=== PATIENT | female | born 1980 | race Caucasian/White ===

== ENCOUNTER 2023-07-17 02:03 | Inpatient (IN) | payer SELFPAY ==
[2023-07-17 02:40] LABS: #Monocytes 0.4 thou/uL (0.11-0.59); #Neutrophils 9.8 thou/uL (1.40-6.50); %Basophils 0.1 % (0.0-1.0); %Eosinophils 0.3 % (0.0-10.0); %Monocytes 3.6 % (0.0-10.0); %Neutrophils 82.7 % (42.0-75.0); Hematocrit 34.8 % (36.0-47.0); Hemoglobin 12.1 g/dL (12.0-16.0); Mean Corpuscular HGB CONC 34.8 g/dL (32.0-36.0); Mean Corpuscular Hemoglobin 30.7 pg (27.0-31.0); Mean Corpuscular Volume 88.3 fl (78.0-98.0); Mean Platelet Volume 10.2 fL (7.4-10.4); Platelet Count 240 10x3/uL (130-400); RBC Distribution Width 13.6 % (11.5-14.5); Red Blood Cell (RBC) Count 3.94 mill/uL (4.20-5.40); White Blood Cell (WBC) Count 11.9 10x3/uL (4.8-10.8)
[2023-07-17] MEDS ORDERED: Ondansetron PF 4 MG/2 ML Vial ONE (02:40)
[2023-07-17] MEDS ORDERED: Morphine 4 MG/ML VIAL ONE (02:40)
[2023-07-17 02:46] LABS: BHCG - Serum Negative (NEGATIVE); Pregs Control Background? CLEAR/WHITE (CLR/WHITE); Pregs Control Bar Appear? YES (CONTROL BAR)
[2023-07-17 03:01] LABS: ALT (SGPT) 13 U/L (8-55); AST (SGOT) 14 U/L (5-34); Albumin 3.9 g/dL (3.5-5.0); Alkaline Phosphatase 69 U/L (40-110); Anion Gap 15 mmol/L (10-20); BUN (Urea Nitrogen) 14 mg/dL (7.0-18.7); Bilirubin, Total 0.5 mg/dL (0.2-1.2); CRP (Inflammatory) 7.37 mg/dL (= or < 0.5); Calc. Creatinine Clearance 0 mL/min (70-130); Calcium 8.6 mg/dL (7.8-10.44); Carbon Dioxide 20 mmol/L (22-29); Chloride 107 mmol/L (98-107); Estimated GFR 89; Globulin 2.9 g/dL (2.4-3.5); Glucose 97 mg/dL (70-105); Potassium 3.6 mmol/L (3.5-5.1); Protein, Total 6.8 g/dL (6.0-8.3); Sodium 138 mmol/L (136-145)
[2023-07-17] MEDS ORDERED: Morphine 2 MG/ML VIAL ONE (03:06)
[2023-07-17] MEDS ORDERED: Ketamine In 0.9 % NaCl 50 MG/5 ML SYRINGE ONE (03:56)
[2023-07-17] MEDS ORDERED: HYDROmorphone 0.5 MG/0.5 ML SYRINGE ONE ×2 (04:17→05:12)
[2023-07-17 04:33] LABS: Bilirubin Negative (Negative); Blood, Urine Negative (Negative); CAUTI Indications for Culture Pelvic or flank pain; Clarity Clear (Clear); Glucose, Urine (Dipstick) Normal (Negative); Ketone, Urine Negative (Negative); Leukocyte Negative Leu/uL (Negative); Nitrite Negative (Negative); Protein, Urine (Dipstick) Negative (Neg-Trace); RBC/HPF 0-3 HPF (0-3); Squamous Epithelial 0-3 HPF (0-3); Urobilinogen Normal mg/dL (Less than 2); WBC/HPF 0-3 HPF (0-3)
[2023-07-17 04:34] LABS: Bacteria/HPF 1+ HPF (None Seen)
[2023-07-17 04:35] LABS: Urine Culture Reflex No No
[2023-07-17] MEDS: Morphine 2 MG/ML VIAL SLOW IVP PRN ×2 (06:57→08:47)
[2023-07-17] MEDS ORDERED: Ketorolac Tromethamine 30 MG (1 mL) VIAL IVP PRN (07:30)
[2023-07-17] MEDS: Pantoprazole 40 MG VIAL IVP SCH (08:48)
[2023-07-17 09:53] VITALS: BMI 35.1
[2023-07-17] MEDS ORDERED: Lactated Ringer's 1,000 ML IV SCH (10:00)
[2023-07-17] MEDS ORDERED: Magnevist 469MG/ML 20 ML VIAL ONE (11:15)
[2023-07-17] MEDS ORDERED: Naloxone HCl 0.4 mg/ml Vial IV PRN (11:30)
[2023-07-17] MEDS ORDERED: Promethazine HCl 25 MG/ML VIAL IM PRN (11:30)
[2023-07-17] MEDS ORDERED: Zolpidem Tartrate 5 MG TAB PO PRN (11:30)
[2023-07-17] MEDS ORDERED: diphenhydrAMINE 50 MG/ML VIAL IM/IV PRN (11:30)
[2023-07-17] MEDS ORDERED: diphenhydrAMINE 25 MG CAP PO PRN (11:30)
[2023-07-17] MEDS: Fentanyl CADD 100 ML IVPB SCH (12:06)
[2023-07-17] MEDS: Acetaminophen 325 MG TAB PO PRN (19:41)
[2023-07-18] MEDS: Acetaminophen 325 MG TAB PO PRN ×2 (01:49→15:58)
[2023-07-18] MEDS: Ondansetron PF 4 MG/2 ML Vial IVP PRN ×3 (01:50→16:51)
[2023-07-18] MEDS: Ketorolac Tromethamine 30 MG (1 mL) VIAL IVP PRN ×3 (01:54→21:26)
[2023-07-18] MEDS: Fentanyl CADD 100 ML IVPB SCH (04:47)
[2023-07-18] MEDS: Pantoprazole 40 MG VIAL IVP SCH (08:06)
[2023-07-18] MEDS ORDERED: cefTRIAXone\\ROCEPHIN 2 GM in Sodium Chloride 0.9% 100 ML IVPB SCH (08:15)
[2023-07-18] MEDS ORDERED: Vancomycin (BATCH) 2 GM in Premix 1 BAG IVPB SCH (09:00)
[2023-07-18 09:02] LABS: Hemoglobin 12.2 g/dL (12.0-16.0); Mean Corpuscular HGB CONC 32.1 g/dL (32.0-36.0); Mean Corpuscular Hemoglobin 30.3 pg (27.0-31.0); Mean Corpuscular Volume 94.5 fl (78.0-98.0); Platelet Count 208 10x3/uL (130-400); RBC Distribution Width 14.2 % (11.5-14.5); Red Blood Cell (RBC) Count 4.02 mill/uL (4.20-5.40); White Blood Cell (WBC) Count 9.2 10x3/uL (4.8-10.8)
[2023-07-18 09:27] LABS: ALT (SGPT) 131 U/L (8-55); AST (SGOT) 83 U/L (5-34); Albumin 3.8 g/dL (3.5-5.0); Alkaline Phosphatase 153 U/L (40-110); Anion Gap 15 mmol/L (10-20); BUN (Urea Nitrogen) 10 mg/dL (7.0-18.7); Bilirubin, Total 1.3 mg/dL (0.2-1.2); Calc. Creatinine Clearance 153 mL/min (70-130); Calcium 8.3 mg/dL (7.8-10.44); Carbon Dioxide 22 mmol/L (22-29); Chloride 102 mmol/L (98-107); Estimated GFR 96; Globulin 3.2 g/dL (2.4-3.5); Glucose 115 mg/dL (70-105); Potassium 3.8 mmol/L (3.5-5.1); Sodium 135 mmol/L (136-145)
[2023-07-18] MEDS: Sodium Chloride 0.9% 1,000 ML IV SCH ×4 (10:44→16:00)
[2023-07-18] MEDS ORDERED: Iopamidol-370 76% 500 ML MDV (1 ML CHARGE) ONE (11:18)
[2023-07-18] MEDS ORDERED: Polyethylene Glycol 3350 17 GM Packet PO PRN (15:08)
[2023-07-18 15:14] LABS: #Monocytes 0.4 thou/uL (0.11-0.59); #Neutrophils 6.8 thou/uL (1.40-6.50); %Basophils 0.1 % (0.0-1.0); %Lymphocytes 8.5 % (21.0-51.0); Hemoglobin 10.6 g/dL (12.0-16.0); Mean Corpuscular HGB CONC 33.1 g/dL (32.0-36.0); Mean Corpuscular Hemoglobin 30.9 pg (27.0-31.0); Mean Corpuscular Volume 93.3 fl (78.0-98.0); Mean Platelet Volume 9.8 fL (7.4-10.4); Platelet Count 179 10x3/uL (130-400); Red Blood Cell (RBC) Count 3.43 mill/uL (4.20-5.40); White Blood Cell (WBC) Count 7.9 10x3/uL (4.8-10.8)
[2023-07-18 15:35] LABS: ALT (SGPT) 96 U/L (8-55); AST (SGOT) 57 U/L (5-34); Albumin 3.3 g/dL (3.5-5.0); Alkaline Phosphatase 137 U/L (40-110); Anion Gap 14 mmol/L (10-20); BUN (Urea Nitrogen) 9 mg/dL (7.0-18.7); Bilirubin, Total 0.6 mg/dL (0.2-1.2); Calc. Creatinine Clearance 164 mL/min (70-130); Calcium 7.5 mg/dL (7.8-10.44); Carbon Dioxide 21 mmol/L (22-29); Chloride 104 mmol/L (98-107); Estimated GFR 104; Globulin 2.6 g/dL (2.4-3.5); Glucose 117 mg/dL (70-105); Potassium 4.2 mmol/L (3.5-5.1); Protein, Total 5.9 g/dL (6.0-8.3); Sodium 135 mmol/L (136-145)
[2023-07-18] MEDS: Vancomycin (BATCH) 1.25 GM in Premix 1 BAG IVPB SCH (21:35)
[2023-07-19] MEDS: Sodium Chloride 0.9% 1,000 ML IV SCH ×3 (00:44→07:58)
[2023-07-19] MEDS: Ketorolac Tromethamine 30 MG (1 mL) VIAL IVP PRN ×3 (03:59→20:14)
[2023-07-19] MEDS: Fentanyl CADD 100 ML IVPB SCH (06:12)
[2023-07-19 07:32] LABS: Hematocrit 33.7 % (36.0-47.0); Hemoglobin 10.3 g/dL (12.0-16.0); Mean Corpuscular HGB CONC 30.6 g/dL (32.0-36.0); Mean Corpuscular Hemoglobin 29.9 pg (27.0-31.0); Mean Platelet Volume 10.4 fL (7.4-10.4); Platelet Count 160 10x3/uL (130-400); RBC Distribution Width 14.2 % (11.5-14.5); Red Blood Cell (RBC) Count 3.44 mill/uL (4.20-5.40); White Blood Cell (WBC) Count 7.5 10x3/uL (4.8-10.8)
[2023-07-19 07:50] LABS: ALT (SGPT) 71 U/L (8-55); AST (SGOT) 31 U/L (5-34); Alkaline Phosphatase 136 U/L (40-110); Anion Gap 11 mmol/L (10-20); BUN (Urea Nitrogen) 12 mg/dL (7.0-18.7); Bilirubin, Total 0.4 mg/dL (0.2-1.2); Calc. Creatinine Clearance 173 mL/min (70-130); Calcium 7.8 mg/dL (7.8-10.44); Carbon Dioxide 21 mmol/L (22-29); Chloride 104 mmol/L (98-107); Estimated GFR 111; Globulin 2.7 g/dL (2.4-3.5); Glucose 115 mg/dL (70-105); Potassium 3.8 mmol/L (3.5-5.1); Protein, Total 5.7 g/dL (6.0-8.3); Sodium 132 mmol/L (136-145)
[2023-07-19] MEDS: Ondansetron PF 4 MG/2 ML Vial IVP PRN ×2 (07:53→20:14)
[2023-07-19] MEDS: Pantoprazole 40 MG VIAL IVP SCH (07:55)
[2023-07-19] MEDS ORDERED: cefTRIAXone\\ROCEPHIN 2 GM in Sodium Chloride 0.9% 100 ML IVPB SCH (08:00)
[2023-07-19] MEDS: Vancomycin (BATCH) 1.25 GM in Premix 1 BAG IVPB SCH (10:01)
[2023-07-19] MEDS ORDERED: Cyclobenzaprine 10 MG TAB PO SCH (10:56)
[2023-07-19] MEDS: Oxacillin 2 GM in Sodium Chloride 0.9% 100 ML IVPB SCH ×3 (14:03→19:55)
[2023-07-19] MEDS: Cyclobenzaprine 10 MG TAB PO PRN (17:39)
[2023-07-19] MEDS ORDERED: Promethazine HCl 25 MG SUPP PR PRN (18:52)
[2023-07-19] MEDS: Enoxaparin 40 MG (0.4 mL) SYRINGE SC SCH (19:57)
[2023-07-20] MEDS: Oxacillin 2 GM in Sodium Chloride 0.9% 100 ML IVPB SCH ×6 (01:19→20:49)
[2023-07-20] MEDS: Cyclobenzaprine 10 MG TAB PO PRN ×3 (01:19→17:15)
[2023-07-20] MEDS: Fentanyl CADD 100 ML IVPB SCH ×2 (03:13→22:54)
[2023-07-20] MEDS: Ondansetron PF 4 MG/2 ML Vial IVP PRN (03:14)
[2023-07-20] MEDS: Ketorolac Tromethamine 30 MG (1 mL) VIAL IVP PRN ×4 (03:14→23:40)
[2023-07-20 06:26] LABS: Hematocrit 29.8 % (36.0-47.0); Hemoglobin 9.4 g/dL (12.0-16.0); Mean Corpuscular HGB CONC 31.5 g/dL (32.0-36.0); Mean Corpuscular Hemoglobin 30.6 pg (27.0-31.0); Mean Corpuscular Volume 97.1 fl (78.0-98.0); Mean Platelet Volume 9.7 fL (7.4-10.4); Platelet Count 178 10x3/uL (130-400); RBC Distribution Width 14.1 % (11.5-14.5); Red Blood Cell (RBC) Count 3.07 mill/uL (4.20-5.40); White Blood Cell (WBC) Count 8.1 10x3/uL (4.8-10.8)
[2023-07-20 06:49] LABS: ALT (SGPT) 47 U/L (8-55); AST (SGOT) 18 U/L (5-34); Alkaline Phosphatase 135 U/L (40-110); Anion Gap 11 mmol/L (10-20); BUN (Urea Nitrogen) 11 mg/dL (7.0-18.7); Bilirubin, Total 0.5 mg/dL (0.2-1.2); Calc. Creatinine Clearance 171 mL/min (70-130); Calcium 7.9 mg/dL (7.8-10.44); Carbon Dioxide 21 mmol/L (22-29); Chloride 104 mmol/L (98-107); Estimated GFR 109; Globulin 2.5 g/dL (2.4-3.5); Glucose 102 mg/dL (70-105); Potassium 3.7 mmol/L (3.5-5.1); Protein, Total 5.5 g/dL (6.0-8.3); Sodium 132 mmol/L (136-145)
[2023-07-20] MEDS: Polyethylene Glycol 3350 17 GM Packet PO SCH (08:43)
[2023-07-20] MEDS: Pantoprazole 40 MG VIAL IVP SCH (08:43)
[2023-07-20] MEDS: Enoxaparin 40 MG (0.4 mL) SYRINGE SC SCH (20:49)
[2023-07-21] MEDS: Cyclobenzaprine 10 MG TAB PO PRN ×2 (01:04→21:52)
[2023-07-21] MEDS: Oxacillin 2 GM in Sodium Chloride 0.9% 100 ML IVPB SCH ×6 (01:04→21:52)
[2023-07-21] MEDS: Ketorolac Tromethamine 30 MG (1 mL) VIAL IVP PRN (04:49)
[2023-07-21] MEDS ORDERED: Gabapentin 300 MG CAP PO SCH (09:45)
[2023-07-21] MEDS: Polyethylene Glycol 3350 17 GM Packet PO SCH (11:26)
[2023-07-21] MEDS: Saccharomyces boulardii 250 MG CAP PO SCH (11:39)
[2023-07-21 12:24] LABS: Hematocrit 34.2 % (36.0-47.0); Hemoglobin 11.4 g/dL (12.0-16.0); Mean Corpuscular HGB CONC 33.3 g/dL (32.0-36.0); Mean Platelet Volume 9.3 fL (7.4-10.4); Platelet Count 241 10x3/uL (130-400); RBC Distribution Width 13.9 % (11.5-14.5); White Blood Cell (WBC) Count 7.5 10x3/uL (4.8-10.8)
[2023-07-21 12:39] LABS: ALT (SGPT) 41 U/L (8-55); AST (SGOT) 18 U/L (5-34); Albumin 3.1 g/dL (3.5-5.0); Alkaline Phosphatase 173 U/L (40-110); Anion Gap 16 mmol/L (10-20); BUN (Urea Nitrogen) 8 mg/dL (7.0-18.7); Bilirubin, Total 0.9 mg/dL (0.2-1.2); Calc. Creatinine Clearance 176 mL/min (70-130); Carbon Dioxide 21 mmol/L (22-29); Chloride 100 mmol/L (98-107); Estimated GFR 111; Globulin 3.2 g/dL (2.4-3.5); Glucose 93 mg/dL (70-105); Potassium 3.6 mmol/L (3.5-5.1); Protein, Total 6.3 g/dL (6.0-8.3); Sodium 133 mmol/L (136-145)
[2023-07-21] MEDS: Lidocaine 4% Patch TD SCH (12:51)
[2023-07-21] MEDS: Ketorolac Tromethamine 30 MG (1 mL) VIAL IVP SCH ×2 (17:15→23:12)
[2023-07-21] MEDS: Gabapentin 300 MG CAP PO SCH (19:30)
[2023-07-21] MEDS: Transdermal Patch Removal TOP SCH (21:52)
[2023-07-21] MEDS: Enoxaparin 40 MG (0.4 mL) SYRINGE SC SCH (21:52)
[2023-07-21] MEDS: Fentanyl CADD 100 ML IVPB SCH (23:52)
[2023-07-22] MEDS: Oxacillin 2 GM in Sodium Chloride 0.9% 100 ML IVPB SCH ×3 (01:45→08:18)
[2023-07-22] MEDS: Gabapentin 300 MG CAP PO SCH ×4 (03:12→21:24)
[2023-07-22] MEDS: Ketorolac Tromethamine 30 MG (1 mL) VIAL IVP SCH ×4 (05:04→23:15)
[2023-07-22] MEDS: Cyclobenzaprine 10 MG TAB PO PRN (05:14)
[2023-07-22 05:52] LABS: Hematocrit 33.6 % (36.0-47.0); Hemoglobin 10.8 g/dL (12.0-16.0); Mean Corpuscular HGB CONC 32.1 g/dL (32.0-36.0); Mean Corpuscular Hemoglobin 30.2 pg (27.0-31.0); Mean Platelet Volume 9.8 fL (7.4-10.4); Platelet Count 235 10x3/uL (130-400); RBC Distribution Width 14.3 % (11.5-14.5); Red Blood Cell (RBC) Count 3.58 mill/uL (4.20-5.40); White Blood Cell (WBC) Count 7.8 10x3/uL (4.8-10.8)
[2023-07-22 05:58] LABS: Mean Corpuscular Volume 93.9 fl (78.0-98.0)
[2023-07-22 06:16] LABS: ALT (SGPT) 33 U/L (8-55); AST (SGOT) 17 U/L (5-34); Albumin 3.2 g/dL (3.5-5.0); Alkaline Phosphatase 180 U/L (40-110); Anion Gap 13 mmol/L (10-20); BUN (Urea Nitrogen) 9 mg/dL (7.0-18.7); Bilirubin, Total 0.6 mg/dL (0.2-1.2); Calc. Creatinine Clearance 176 mL/min (70-130); Calcium 8.2 mg/dL (7.8-10.44); Carbon Dioxide 22 mmol/L (22-29); Chloride 102 mmol/L (98-107); Estimated GFR 111; Globulin 2.9 g/dL (2.4-3.5); Glucose 91 mg/dL (70-105); Potassium 4.1 mmol/L (3.5-5.1); Protein, Total 6.1 g/dL (6.0-8.3); Sodium 133 mmol/L (136-145)
[2023-07-22] MEDS: Polyethylene Glycol 3350 17 GM Packet PO SCH (08:18)
[2023-07-22] MEDS: Saccharomyces boulardii 250 MG CAP PO SCH (08:20)
[2023-07-22] MEDS ORDERED: Lidocaine 4% Patch TD SCH (09:00)
[2023-07-22] MEDS: Transdermal Patch Removal TOP SCH (10:00)
[2023-07-22] MEDS: Lidocaine 4% Patch TD SCH (10:20)
[2023-07-22] MEDS ORDERED: Gabapentin 300 MG CAP PO SCH (10:30)
[2023-07-22] MEDS ORDERED: CEFAZOLIN IVPB SCH (14:00)
[2023-07-22] MEDS: CEFAZOLIN 2 GM in Sodium Chloride 0.9% 100 ML IVPB SCH ×2 (15:12→21:24)
[2023-07-22] MEDS: Enoxaparin 40 MG (0.4 mL) SYRINGE SC SCH (21:24)
[2023-07-23] MEDS: Cyclobenzaprine 10 MG TAB PO PRN ×3 (03:30→17:38)
[2023-07-23] MEDS: Ketorolac Tromethamine 30 MG (1 mL) VIAL IVP SCH ×2 (04:21→20:10)
[2023-07-23] MEDS: CEFAZOLIN 2 GM in Sodium Chloride 0.9% 100 ML IVPB SCH ×3 (05:43→20:35)
[2023-07-23 05:53] LABS: Hematocrit 28.8 % (36.0-47.0); Hemoglobin 9.8 g/dL (12.0-16.0); Mean Corpuscular Hemoglobin 30.7 pg (27.0-31.0); Mean Corpuscular Volume 90.3 fl (78.0-98.0); Mean Platelet Volume 9.3 fL (7.4-10.4); Platelet Count 290 10x3/uL (130-400); RBC Distribution Width 14.5 % (11.5-14.5); Red Blood Cell (RBC) Count 3.19 mill/uL (4.20-5.40); White Blood Cell (WBC) Count 7.3 10x3/uL (4.8-10.8)
[2023-07-23 06:15] LABS: ALT (SGPT) 29 U/L (8-55); AST (SGOT) 25 U/L (5-34); Albumin 2.7 g/dL (3.5-5.0); Alkaline Phosphatase 153 U/L (40-110); Anion Gap 13 mmol/L (10-20); BUN (Urea Nitrogen) 8 mg/dL (7.0-18.7); Bilirubin, Total 0.5 mg/dL (0.2-1.2); Calc. Creatinine Clearance 173 mL/min (70-130); Carbon Dioxide 22 mmol/L (22-29); Chloride 105 mmol/L (98-107); Estimated GFR 111; Globulin 2.9 g/dL (2.4-3.5); Glucose 99 mg/dL (70-105); Protein, Total 5.6 g/dL (6.0-8.3); Sodium 136 mmol/L (136-145)
[2023-07-23] MEDS: Lidocaine 4% Patch TD SCH ×2 (09:41→10:57)
[2023-07-23] MEDS: Polyethylene Glycol 3350 17 GM Packet PO SCH (09:41)
[2023-07-23] MEDS: Saccharomyces boulardii 250 MG CAP PO SCH (09:42)
[2023-07-23] MEDS: Gabapentin 300 MG CAP PO SCH ×3 (09:43→20:34)
[2023-07-23] MEDS ORDERED: fentaNYL 50 mcg/mL 1 mL Vial SLOW IVP PRN (10:58)
[2023-07-23] MEDS ORDERED: HYDROcodone/Acetaminophen 10/325 mg Tablet PO PRN ×2 (10:59)
[2023-07-23 11:48] LABS: HIV (1/2) Antibody/Antigen Non-Reactive (NonReactive); HIV 1/2 INDEX 0.35 S/CO (<1.00)
[2023-07-23] MEDS: Ibuprofen 600 MG TAB PO SCH ×2 (12:27→17:38)
[2023-07-23] MEDS: Oxacillin 2 GM in Sodium Chloride 0.9% 100 ML IVPB SCH (19:37)
[2023-07-23] MEDS: Transdermal Patch Removal TOP SCH (20:33)
[2023-07-23] MEDS: Enoxaparin 40 MG (0.4 mL) SYRINGE SC SCH (20:35)
[2023-07-23] MEDS ORDERED: Cyclobenzaprine 10 MG TAB PO SCH (23:45)
[2023-07-24] MEDS: Ibuprofen 600 MG TAB PO SCH ×4 (00:06→18:21)
[2023-07-24] MEDS: Cyclobenzaprine 10 MG TAB PO PRN (05:13)
[2023-07-24] MEDS: CEFAZOLIN 2 GM in Sodium Chloride 0.9% 100 ML IVPB SCH ×3 (05:14→22:13)
[2023-07-24 05:39] LABS: Hematocrit 31.5 % (36.0-47.0); Hemoglobin 10.2 g/dL (12.0-16.0); Mean Corpuscular HGB CONC 32.4 g/dL (32.0-36.0); Mean Corpuscular Hemoglobin 29.9 pg (27.0-31.0); Mean Corpuscular Volume 92.4 fl (78.0-98.0); Mean Platelet Volume 9.4 fL (7.4-10.4); Platelet Count 242 10x3/uL (130-400); RBC Distribution Width 14.6 % (11.5-14.5); Red Blood Cell (RBC) Count 3.41 mill/uL (4.20-5.40); White Blood Cell (WBC) Count 4.9 10x3/uL (4.8-10.8)
[2023-07-24 06:17] LABS: ALT (SGPT) 37 U/L (8-55); AST (SGOT) 48 U/L (5-34); Albumin 2.8 g/dL (3.5-5.0); Alkaline Phosphatase 150 U/L (40-110); Anion Gap 11 mmol/L (10-20); BUN (Urea Nitrogen) 8 mg/dL (7.0-18.7); Bilirubin, Total 0.3 mg/dL (0.2-1.2); Calc. Creatinine Clearance 192 mL/min (70-130); Calcium 7.9 mg/dL (7.8-10.44); Carbon Dioxide 25 mmol/L (22-29); Chloride 106 mmol/L (98-107); Estimated GFR 114; Globulin 2.6 g/dL (2.4-3.5); Glucose 89 mg/dL (70-105); Potassium 4.3 mmol/L (3.5-5.1); Protein, Total 5.4 g/dL (6.0-8.3); Sodium 138 mmol/L (136-145)
[2023-07-24] MEDS: Gabapentin 300 MG CAP PO SCH ×4 (07:52→21:20)
[2023-07-24] MEDS: Saccharomyces boulardii 250 MG CAP PO SCH ×2 (07:53→08:14)
[2023-07-24] MEDS: traMADol HCl 50 MG TAB PO PRN ×2 (07:53→08:13)
[2023-07-24] MEDS: Polyethylene Glycol 3350 17 GM Packet PO SCH ×2 (07:54→12:06)
[2023-07-24] MEDS: Lidocaine 4% Patch TD SCH (08:14)
[2023-07-24] MEDS: HYDROcodone/Acetaminophen 5/325 mg Tablet PO PRN (13:16)
[2023-07-24] MEDS: Methocarbamol 500 MG TAB PO PRN ×2 (13:28→21:25)
[2023-07-24] MEDS ORDERED: Cyclobenzaprine 10 MG TAB PO SCH (15:00)
[2023-07-24] MEDS: Enoxaparin 40 MG (0.4 mL) SYRINGE SC SCH (21:23)
[2023-07-24] MEDS: Transdermal Patch Removal TOP SCH (22:21)
[2023-07-25] MEDS: Ibuprofen 600 MG TAB PO SCH ×3 (00:13→12:25)
[2023-07-25] MEDS: traMADol HCl 50 MG TAB PO PRN ×2 (01:49→09:43)
[2023-07-25] MEDS: HYDROcodone/Acetaminophen 5/325 mg Tablet PO PRN (02:55)
[2023-07-25] MEDS: CEFAZOLIN 2 GM in Sodium Chloride 0.9% 100 ML IVPB SCH ×2 (06:04→14:18)
[2023-07-25] MEDS: Methocarbamol 500 MG TAB PO PRN (06:04)
[2023-07-25 06:24] LABS: Hematocrit 30.9 % (36.0-47.0); Hemoglobin 10.1 g/dL (12.0-16.0); Mean Corpuscular HGB CONC 32.7 g/dL (32.0-36.0); Mean Corpuscular Hemoglobin 30.1 pg (27.0-31.0); Mean Platelet Volume 9.4 fL (7.4-10.4); Platelet Count 327 10x3/uL (130-400); RBC Distribution Width 14.3 % (11.5-14.5); Red Blood Cell (RBC) Count 3.36 mill/uL (4.20-5.40); White Blood Cell (WBC) Count 6.8 10x3/uL (4.8-10.8)
[2023-07-25 07:00] LABS: ALT (SGPT) 64 U/L (8-55); AST (SGOT) 80 U/L (5-34); Albumin 2.9 g/dL (3.5-5.0); Alkaline Phosphatase 152 U/L (40-110); Anion Gap 10 mmol/L (10-20); BUN (Urea Nitrogen) 10 mg/dL (7.0-18.7); Bilirubin, Total 0.3 mg/dL (0.2-1.2); Calc. Creatinine Clearance 178 mL/min (70-130); Calcium 8.2 mg/dL (7.8-10.44); Carbon Dioxide 27 mmol/L (22-29); Chloride 103 mmol/L (98-107); Estimated GFR 111; Glucose 92 mg/dL (70-105); Potassium 4.3 mmol/L (3.5-5.1); Protein, Total 5.9 g/dL (6.0-8.3); Sodium 136 mmol/L (136-145)
[2023-07-25 09:31] VITALS: BP 134/81; TEMP 97.5
[2023-07-25] MEDS: Saccharomyces boulardii 250 MG CAP PO SCH (09:44)
[2023-07-25] MEDS: Polyethylene Glycol 3350 17 GM Packet PO SCH (09:45)
[2023-07-25] MEDS: Gabapentin 300 MG CAP PO SCH ×2 (09:45→14:15)
[2023-07-25] MEDS: Lidocaine 4% Patch TD SCH (09:45)
[2023-07-25] MEDS ORDERED: DAPTOmycin 800 MG in Sodium Chloride 0.9% 50 ML IVPB SCH (10:00)
== END 2023-07-25 16:41 | disposition home or self-care (01) | DRG 871 ==
LOC: ERS 02:03 → MSONC 05:46 → OBSVTOIN 13:18
PROVIDERS: ADMIT Family Medicine; ATTEND Family Medicine
PROC: 3E03329 Introduction of Other Anti-infective into Peripheral Vein, Percutaneous Approach (ICD-10-PCS; 2023-07-18)
PROC: 02HV33Z Insertion of Infusion Device into Superior Vena Cava, Percutaneous Approach (ICD-10-PCS; principal; 2023-07-23)
PROC: B5181ZA Fluoroscopy of Superior Vena Cava using Low Osmolar Contrast, Guidance (ICD-10-PCS; 2023-07-23)
PROC: B548ZZA Ultrasonography of Superior Vena Cava, Guidance (ICD-10-PCS; 2023-07-23)
DX: A41.01 Sepsis due to Methicillin susceptible Staphylococcus aureus (principal); J96.01 Acute respiratory failure with hypoxia; M46.20 Osteomyelitis of vertebra, site unspecified; M60.08 Infective myositis, other site; M48.061 Spinal stenosis, lumbar region without neurogenic claudication; R74.01 Elevation of levels of liver transaminase levels; Z90.49 Acquired absence of other specified parts of digestive tract; Z98.890 Other specified postprocedural states; Z88.5 Allergy status to narcotic agent; Z82.49 Family history of ischemic heart disease and other diseases of the circulatory system
CPT/HCPCS: 36415; 36569; 71045; 71275; 72158; 74176; 80053; 81001; 83605; 83690; 84145; 84703; 85025; 85027; 85379; 86140; 86141; 87040; 87077; 87149; 87186; 87389; 93005; 93010; 93306; 96361; 96374; 96375; 96376; A9579; C9113; G0378; J0696; J0780; J0878; J1170; J1650; J1885; J2270; J2272; J2405; J2700; J3010; J3370; J3490; J7050; J7120; Q9967

== ENCOUNTER 2025-04-04 08:19 | Outpatient (CLI) | payer OTHER | END 2025-04-04 08:20 | disposition home or self-care (01) | LOC: SCSBT 08:19 | PROVIDERS: ATTEND Family Medicine | DX: M85.89 Other specified disorders of bone density and structure, multiple sites (principal) | CPT/HCPCS: 77080 ==